=== PATIENT | male | born 1995 | race Caucasian/White ===

== ENCOUNTER 2021-09-29 23:33 | Inpatient (IN) | payer MEDICAID ==
[~2021-09-29] VITALS: Ht 167.6 cm; Wt 63.5 kg
--- NOTE | 2021-09-29 23:42 | NUR ---
RN ADMITTING NOTES REPORT WAS GIVEN BY NURSE LI VIA PHONE FROM [employer] IN [place]. PATIENT ARRIVED TO THE UNIT VIA [place] AT APPROXIMATELY THIS TIME ACCOMPANIED BY 2 [address]UM[address] CUB. PATIENT WAS ABLE TO WALK INDEPENDENTLY FROM [place] TO BED. PATIENT WAS ORIENTED TO THE ROOM AND STAFF. PATIENT'S ALERT AND ORIENTED X4. PATIENT'S STABLE ON ROOM AIR. IV ACCESS NOTED ON RFA G#20. PATIENT'S IN NO ACUTE DISTRESS AT THIS TIME. SAFETY MEASURES IN PLACE: BED LOCKED, SIDE RAILS UPX2, AND CALL LIGHT WITHIN REACH OF THE PATIENT. WILL CONTINUE TO MONITOR THE PATIENT.
--- NOTE | 2021-09-30 | NUR ---
WATER SYSTEM OPERATOR NOTES PATIENT REFUSED ADMISSION SKIN CHECK ON BUTTOCKS/GROIN AREA/AND THIGHS.
[2021-09-30] MEDS ORDERED: Z GUARD REMEDY 2 OZ OINT TP PRN (01:30)
[2021-09-30] MEDS ORDERED: ONDANSETRON HCL/PF 4 MG/2 ML VIAL IVP PRN (01:30)
[2021-09-30 02:21] VITALS: BP 135/88
[2021-09-30] MEDS: MORPHINE SULFATE INJ 2 MG/ML DISP.SYRIN IV PRN ×4 (02:50→22:44)
--- NOTE | 2021-09-30 02:50 | NUR ---
CUSTOM STUDIO COORDINATOR NOTES PATIENT C/O 8/10 PAIN IN BACK. 2MG OF MORPHINE IV WAS GIVEN. WILL REASSESS PAIN AT 0320.
[2021-09-30 03:02] VITALS: BP 135/88
[2021-09-30 04:00] VITALS: BP 141/78
[2021-09-30] MEDS: IV NS 0.9% 1,000 ML IV PRN ×2 (05:05→17:38)
[2021-09-30] MEDS: ACETAMINOPHEN 325 MG TABLET PO PRN (05:21)
[2021-09-30 06:27] LABS: BASOPHILS # (AUTO) 0.1 K/uL (0.0-0.2); BASOPHILS % (AUTO) 1.8 % (0.0-2.0); HEMATOCRIT 39 % (39-51); HEMOGLOBIN 13.4 g/dL (13.5-17.5); LYMPHOCYTES # (AUTO) 1.3 K/uL (0.8-4.8); LYMPHOCYTES % (AUTO) 24.8 % (20.0-44.0); MEAN CORPUSCULAR HGB CONC 35 g/dl (31.0-36.0); MEAN CORPUSCULAR VOLUME 99 fL (80-96); MONOCYTES # (AUTO) 0.3 K/uL (0.1-1.30); MONOCYTES % (AUTO) 5.5 % (2.0-12.0); NEUTROPHILS # (AUTO) 3.2 K/uL (1.8-8.9); NEUTROPHILS % (AUTO) 62.9 % (43.0-81.0); PLATELET COUNT (AUTO) 145 K/uL (150-450); RED BLOOD CELL COUNT(AUTO) 3.92 MIL/uL (4.5-6.0)
[2021-09-30 06:28] LABS: ALBUMIN 4.1 g/dL (3.4-5.0); BILIRUBIN,TOTAL 1.5 mg/dL (0.2-1.0); CALCIUM, SERUM 8.9 mg/dL (8.5-10.1); CREATININE 0.7 mg/dL (0.6-1.3); MAGNESIUM 2.1 mg/dL (1.8-2.4); PHOSPHORUS 3.1 mg/dL (2.5-4.9); POTASSIUM 3.7 mmol/L (3.5-5.1); TOTAL PROTEIN, SERUM 7.6 g/dL (6.4-8.2)
--- NOTE | 2021-09-30 07:10 | NUR ---
CHILD WELFARE COUNSELOR OPENING NOTES RECEIVED PATIENT AWAKE RESTING IN BED. PATIENT'S ALERT AND ORIENTED X4. PATIENT'S STABLE ON ROOM AIR. IV ACCESS NOTED ON RFA G#20 WITH NS RUNNING AT 75ML/HR, WHICH IS INTACT, PATENT, AND FLUSHING WELL. PATIENT'S IN NO ACUTE DISTRESS AT THIS TIME. SAFETY MEASURES IN PLACE: BED LOCKED, SIDE RAILS UPX2, AND CALL LIGHT WITHIN REACH OF THE PATIENT. WILL CONTINUE MONITORING PATIENT
--- NOTE | 2021-09-30 07:20 | NUR ---
MILITARY LOGISTICS SPECIALIST CLOSING NOTES PATIENT WAS SEEN AWAKE RESTING IN BED. PATIENT'S ALERT AND ORIENTED X4. PATIENT'S STABLE ON ROOM AIR. IV ACCESS NOTED ON RFA G#20, WHICH IS INTACT, PATENT, AND FLUSHING WELL. PATIENT'S IN NO ACUTE DISTRESS AT THIS TIME. SAFETY MEASURES IN PLACE: BED LOCKED, SIDE RAILS UPX2, AND CALL LIGHT WITHIN REACH OF THE PATIENT. ENDORSED CARE TO THE DAY SHIFT NURSE.
[2021-09-30 08:00] VITALS: BP 136/89
[2021-09-30] MEDS: PANTOPRAZOLE 40 MG VIAL IV SCH ×2 (08:50→21:20)
--- NOTE | 2021-09-30 14:10 | NUR ---
DIRECTOR OF ROTC NOTE SEEN BY DR. RICARDO.
[2021-09-30 16:00] VITALS: BP 121/82
--- NOTE | 2021-09-30 19:00 | NUR ---
MS RN OPENING NOTE RECEIVED PT IN BED A/O X4. AWAKE AND RESTING, NO SOB OR RESPIRATORY DISTRESS NOTED,NO C/O PAIN AT THIS TIME. RESPIRATIONS EVEN AND UNLABORED. IV ACCESS NOTED IN RIGHT FORE ARM G#20. FALL AND SAFETY MEASURES IN PLACE AND MAINTAINED AT ALL TIMES. BED ALARM, BED IN LOW AND LOCKED POSITION, HOB ELEVATED TO SEMI FOWLERS POSITION, CALL LIGHT AND TABLE WITHIN REACH. SIDE RAILS UP X2. WILL CONTINUE WITH PLAN OF CARE.
--- NOTE | 2021-09-30 19:20 | NUR ---
SONG LYRICIST CLOSING NOTES PATIENT AWAKE RESTING IN BED. PATIENT'S ALERT AND ORIENTED X4. PATIENT'S STABLE ON ROOM AIR. IV ACCESS NOTED ON RFA G#20 WITH NS RUNNING AT 75ML/HR, WHICH IS INTACT, PATENT, AND FLUSHING WELL. PATIENT'S IN NO ACUTE DISTRESS AT THIS TIME. SAFETY MEASURES IN PLACE: BED LOCKED, SIDE RAILS UPX2, AND CALL LIGHT WITHIN REACH OF THE PATIENT. WILL ENDORSE PATIENT FOR CONTINUITY OF CARE.
[2021-09-30 20:00] VITALS: BP 135/88
--- NOTE | 2021-09-30 22:44 | NUR ---
PT C/O ACHING PAIN, PER PT REQUEST MORPHINE 2MG/ML IV Q4HR PRN ADMINISTERED AT THIS TIME PER ORDER. WILL CONTINUE TO MONITOR.
[2021-10-01] MEDS: MORPHINE SULFATE INJ 2 MG/ML DISP.SYRIN IV PRN ×2 (03:18→08:11)
--- NOTE | 2021-10-01 03:18 | NUR ---
PT C/O ACHING PAIN, PER PT REQUEST MORPHINE 2MG/ML IV Q4HR PRN ADMINISTERED AT THIS TIME PER ORDER. WILL CONTINUE TO MONITOR
[2021-10-01] MEDS: ACETAMINOPHEN 325 MG TABLET PO PRN (04:53)
--- NOTE | 2021-10-01 04:53 | NUR ---
PT C/O PAIN, PER PT REQUEST TYLENOL 650MG Q6HR PRN ADMINISTERED AT THIS TIME PER ORDER. WILL CONTINUE TO MONITOR
--- NOTE | 2021-10-01 06:30 | NUR ---
MS RN CLOSING NOTE PT REMAINED STABLE THROUGHOUT SHIFT. WILL ENDORSE TO MORNING NURSE FOR JEFF.
[2021-10-01 06:37] LABS: ALBUMIN 4.1 g/dL (3.4-5.0); BILIRUBIN,DIRECT 0.4 mg/dL (0.0-0.2); BILIRUBIN,TOTAL 1.1 mg/dL (0.2-1.0); TOTAL PROTEIN, SERUM 7.5 g/dL (6.4-8.2)
--- NOTE | 2021-10-01 07:46 | NUR ---
MS/RN OPENING NOTE RECEIVED PT IN BED A/O X4. AWAKE AND RESTING, NO SOB OR RESPIRATORY DISTRESS NOTED,NO C/O PAIN AT THIS TIME. RESPIRATIONS EVEN AND UNLABORED. IV ACCESS NOTED IN RIGHT FA #20G. FALL AND SAFETY MEASURES IN PLACE AND MAINTAINED AT ALL TIMES. BED ALARM, BED IN LOW AND LOCKED POSITION, HOB ELEVATED TO SEMI FOWLERS POSITION, CALL LIGHT AND TABLE WITHIN REACH. SIDE RAILS UP X2. WILL CONTINUE WITH PLAN OF CARE.
[2021-10-01] MEDS: PANTOPRAZOLE 40 MG VIAL IV SCH (08:10)
[2021-10-01 09:09] VITALS: BP 124/83
[2021-10-01 10:14] LABS: BASOPHILS % (AUTO) 1.3 % (0.0-2.0); EOSINOPHILS % (AUTO) 8.1 % (0.0-6.0); HEMATOCRIT 40 % (39-51); HEMOGLOBIN 13.3 g/dL (13.5-17.5); LYMPHOCYTES % (AUTO) 27.5 % (20.0-44.0); MEAN CORPUSCULAR HGB CONC 34 g/dl (31.0-36.0); MEAN CORPUSCULAR VOLUME 100 fL (80-96); MONOCYTES # (AUTO) 0.2 K/uL (0.1-1.30); MONOCYTES % (AUTO) 6.6 % (2.0-12.0); NEUTROPHILS % (AUTO) 56.5 % (43.0-81.0); PLATELET COUNT (AUTO) 138 K/uL (150-450); RED BLOOD CELL COUNT(AUTO) 3.95 MIL/uL (4.5-6.0); WHITE BLOOD COUNT (AUTO) 3.6 K/uL (4.3-11.0)
--- NOTE | 2021-10-01 10:21 | NUR ---
MS RN AMA NOTE PATIENT CHOSE TO LEAVE AMA. HEALTH EDUCATION AND RISKS INVOLVED IN LEAVING WERE EXPLAINED TO THE PATIENT IN [place]. PATIENT WAS ADAMANT HE WANTED TO LEAVE. PATIENT SIGNED AMA FORM - IT IS PLACED IN CHART. ALL BELONGINGS ACCOUNTED FOR AND RETURNED TO PATIENT. RT IV ACCESS REMOVED SUCCESSFULLY WITH CATH INTACT. ALL ID BAND REMOVED. PATIENT WAS STABLE UPON LEAVING. HIS MD, DR. RICARDO, WAS NOTIFIED.
== END 2021-10-01 10:30 | disposition left against medical advice (07) | DRG 253 ==
LOC: TELE 23:33 → MED 09-30 20:31
PROVIDERS: ADMIT Nurse Practitioner Acute Care; ATTEND Nurse Practitioner Acute Care
DX: K92.2 Gastrointestinal hemorrhage, unspecified (principal); E87.1 Hypo-osmolality and hyponatremia; R74.01 Elevation of levels of liver transaminase levels; Z72.89 Other problems related to lifestyle
CPT/HCPCS: 36415; 76700-TC; 80053-TC; 80076-TC; 83735-TC; 84100-TC; 85025-TC; 85610-TC; 86850-TC; 87081-TC; C9113; G0378; J2270; J7030